=== PATIENT | male | born 1940 | race Caucasian/White ===

== ENCOUNTER 2017-04-24 02:58 | Emergency (ER) | payer MEDICARE ==
[~2017-04-24] VITALS: Ht 182.9 cm; Wt 83.9 kg
[~2017-04-24 02:58] MED LIST: BENZ1CAP34 PO; CARA1TAB6 PO; DEXT10SY2 PO; LISI10TA3 PO; PANT40TA3 PO; VENTAER INH
[2017-04-24 03:08] VITALS: BP 113/55; PULSE 80; RESP 18; TEMP 98.2; O2SAT 98
[2017-04-24 03:30] VITALS: O2SAT 99
[2017-04-24] MEDS ORDERED: ALUMINUM/MAGNESIUM/SIMETH 30 ML CUP PO ONE (03:30)
[2017-04-24] MEDS ORDERED: LIDOCAINE VISCOUS 2% SOLN 15 ML UDC PO ONE (03:30)
[2017-04-24] MEDS ORDERED: SODIUM CHLORIDE 0.9% FLUSH 10 ML FLUSH IV FLUSH PRN (03:30)
[2017-04-24 03:51] LABS: AUTOMATED NEUTROPHIL # 5.2 TH/MM3 (1.8-7.7); BASOPHIL % 0.4 % (0.0-2.0); EOSINOPHIL # 0.5 TH/MM3 (0-0.4); EOSINOPHIL % 6.1 % (0.0-4.0); HEMOGLOBIN 9.8 GM/DL (13.0-17.0); LYMPH % 17.9 % (9.0-44.0); LYMPHOCYTE # 1.4 TH/MM3 (1.0-4.8); MEAN CELL VOLUME 94.3 FL (80.0-100.0); MEAN CORPUSCULAR HGB CONC 33.9 % (32.0-36.0); MEAN PLATELET VOLUME 7.9 FL (7.0-11.0); MONOCYTE # 0.5 TH/MM3 (0-0.9); NEUT % 69.6 % (16.0-70.0); PLATELET COUNT 173 TH/MM3 (150-450); RED BLOOD COUNT 3.08 MIL/MM3 (4.50-5.90); RED CELL DISTRIBUTION WIDTH 13.5 % (11.6-17.2); WHITE BLOOD COUNT 7.6 TH/MM3 (4.0-11.0)
[2017-04-24 04:00] LABS: CHLORIDE 105 MEQ/L (98-107); SODIUM (NA) 141 MEQ/L (136-145)
[2017-04-24 04:05] LABS: CALCIUM 8.4 MG/DL (8.5-10.1); INTERNATIONAL NORMALIZED RATIO 0.9 RATIO; PROTHROMBIN TIME - PATIENT 10.4 SEC (9.8-11.6)
[2017-04-24 04:06] LABS: ALBUMIN 3.5 GM/DL (3.4-5.0); BICARBONATE 28.4 MEQ/L (21.0-32.0); BLOOD UREA NITROGEN 34 MG/DL (7-18); GLUCOSE,RANDOM 123 MG/DL (74-106); LIPASE 267 U/L (73-393)
[2017-04-24 04:08] LABS: ALT (GPT) 24 U/L (12-78); AST (GOT) 13 U/L (15-37); GLOMERULAR FILTRATION RATE 39 ML/MIN (>89)
[2017-04-24 04:10] LABS: TOTAL BILIRUBIN ADULT 0.3 MG/DL (0.2-1.0); TOTAL PROTEIN 6.9 GM/DL (6.4-8.2)
[2017-04-24 04:11] LABS: ALKALINE PHOSPHATASE 44 U/L (45-117)
--- NOTE | 2017-04-24 04:42 | PD ---
HPI Chief Complaint: Abdominal Pain Time Seen by Provider: 03:22 Travel History International Travel<30 days: Yes Contact w/Intl Traveler<30days: Yes Name of Country Traveled to: [facility] Traveled to known affect area: No History of Present Illness HPI 76-year-old male here for evaluation of abdominal pain that woke him up from sleep around 2:00 AM. The patient was recently admitted on 04/19/17 and was discharged the following day after having an upper endoscopy for epigastric pain and melena. EGD apparently demonstrated esophagitis and gastritis as well as duodenitis. There was a clean-based ulcer in the duodenum. Biopsies from this procedure were reviewed and shows normal duodenal mucosa, normal antrum, distal esophagitis. Patient reports that the pain was severe when it initially started, then he had a bowel movement in the pain improved. It is now mild to moderate, described as cramping. He denies vomiting. No fevers. No chest pain or dyspnea. He states his bowel movement was dark, however it was not black. PFSH Past Medical History Blood Disorders: No Cancer: No Cardiovascular Problems: Yes Diminished Hearing: No Endocrine: No Gastrointestinal Disorders: Yes (SEVERE BLEEDING GASTRIC ULCER) Genitourinary: Yes Hepatitis: Yes (C) Hypertension: Yes Immune Disorder: Yes (H(X) HEP B ) Implanted Vascular Access Dvce: No Kidney Stones: Yes Musculoskeletal: No Neurologic: No Reproductive: No Respiratory: No Ulcer: Yes Tetanus Vaccination: < 5 Years Influenza Vaccination: Yes Past Surgical History Abdominal Surgery: Yes (EGD WITH TOBI PLACED FOR BLEEDING ULCER ) Eye Surgery: Yes (cataract ) Oral Surgery: Yes (wisdom teeth ) Pacemaker: No Other Surgery: Yes (DEVIATED SEPTUM REPAIR; CATARACT SURGERY) Social History Alcohol Use: No Tobacco Use: No Substance Use: No Allergies-Medications (Allergen,Severity, Reaction): Coded Allergies: penicillin G (Unverified Allergy, Unknown, 04/24/17) Reported Meds & Prescriptions Reported Meds & Active Scripts Active Pantoprazole (Pantoprazole Sodium) 40 Mg Tab 40 Mg PO DAILY Carafate (Sucralfate) 1 Gram Tab 1 Gm PO ACHS Dextromethorphan/Guaifene 10-100 mg/5Ml (Dextromethorphan-Guaifenesin) 100 Mg- 10 Mg/5 Ml Syp 10 Ml PO Q4H PRN Reported Ventolin Hfa 18 GM Inh (Albuterol Sulfate) 90 Mcg/Act Aer 2 Puff INH Q4-6H PRN Benzonatate 200 Mg Cap 200 Mg PO TID PRN Lisinopril 10 Mg Tab 10 Mg PO DAILY Review of Systems Except as stated in HPI: all other systems reviewed are Neg Physical Exam Narrative GENERAL: Well-developed, well-nourished, comfortable, no apparent distress. SKIN: Focused skin assessment warm/dry. No pallor. HEAD: Atraumatic. Normocephalic. EYES: Pupils equal and round. No scleral icterus. No injection or drainage. ENT: Mucous membranes pink and moist. NECK: Trachea midline. No JVD. CARDIOVASCULAR: Regular rate and rhythm. RESPIRATORY: No accessory muscle use. Clear to auscultation. Breath sounds equal bilaterally. GASTROINTESTINAL: Abdomen soft, nondistended. Mild epigastric and umbilical tenderness without peritoneal signs. Normal bowel sounds. MUSCULOSKELETAL: No obvious deformities. No clubbing. No cyanosis. No edema. NEUROLOGICAL: Awake and alert. No obvious cranial nerve deficits. Motor grossly within normal limits. Normal speech. PSYCHIATRIC: Appropriate mood and affect; insight and judgment normal. Data Data Last Documented VS Vital Signs Date Time Temp Pulse Resp B/P (MAP) Pulse Ox O2 Delivery O2 Flow Rate FiO2 04/24/17 04:57 78 18 130/65 (86) 98 Room Air 04/24/17 03:08 98.2 Orders Orders Complete Blood Count With Diff (04/24/17 03:26) Comprehensive Metabolic Panel (04/24/17 03:26) Lipase (04/24/17 03:26) Prothrombin Time / Inr (Pt) (04/24/17 03:26) Act Partial Throm Time (Ptt) (04/24/17 03:26) Urinalysis - C+S If Indicated (04/24/17 03:26) Ct Abd/Pel W Iv Contrast(Rout) (04/24/17 03:26) Iv Access Insert/Monitor (04/24/17 03:26) Ecg Monitoring (04/24/17 03:26) Oximetry (04/24/17 03:26) Sodium Chloride 0.9% Flush (Ns Flush) (04/24/17 03:30) Electrocardiogram (04/24/17 03:26) Al-Mag Hy-Si 40-40-4 Mg/Ml Liq (Mag-Al P (04/24/17 03:30) Lidocaine 2% Viscous (Xylocaine 2% Visco (04/24/17 03:30) Iodixanol 320 Inj (Rad Ct) (Visipaque 32 (04/24/17 04:45) Labs Laboratory Tests Test 04/24/17 03:35 White Blood Count 7.6 TH/MM3 Red Blood Count 3.08 MIL/MM3 Hemoglobin 9.8 GM/DL Hematocrit 29.0 % Mean Corpuscular Volume 94.3 FL Mean Corpuscular Hemoglobin 32.0 PG Mean Corpuscular Hemoglobin Concent 33.9 % Red Cell Distribution Width 13.5 % Platelet Count 173 TH/MM3 Mean Platelet Volume 7.9 FL Neutrophils (%) (Auto) 69.6 % Lymphocytes (%) (Auto) 17.9 % Monocytes (%) (Auto) 6.0 % Eosinophils (%) (Auto) 6.1 % Basophils (%) (Auto) 0.4 % Neutrophils # (Auto) 5.2 TH/MM3 Lymphocytes # (Auto) 1.4 TH/MM3 Monocytes # (Auto) 0.5 TH/MM3 Eosinophils # (Auto) 0.5 TH/MM3 Basophils # (Auto) 0.0 TH/MM3 CBC Comment DIFF FINAL Differential Comment Prothrombin Time 10.4 SEC Prothromb Time International Ratio 0.9 RATIO Activated Partial Thromboplast Time 25.3 SEC Blood Urea Nitrogen 34 MG/DL Creatinine 1.70 MG/DL Random Glucose 123 MG/DL Total Protein 6.9 GM/DL Albumin 3.5 GM/DL Calcium Level 8.4 MG/DL Alkaline Phosphatase 44 U/L Aspartate Amino Transf (AST/SGOT) 13 U/L Alanine Aminotransferase (ALT/SGPT) 24 U/L Total Bilirubin 0.3 MG/DL Sodium Level 141 MEQ/L Potassium Level 3.9 MEQ/L Chloride Level 105 MEQ/L Carbon Dioxide Level 28.4 MEQ/L Anion Gap 8 MEQ/L Estimat Glomerular Filtration Rate 39 ML/MIN Lipase 267 U/L [facility] Medical Decision Making Medical Screen Exam Complete: Yes Emergency Medical Condition: Yes Medical Record Reviewed: Yes Interpretation(s) EKG: Sinus, rate 77, normal axis, normal intervals, no acute ischemic abnormality. Differential Diagnosis Gastritis, peptic ulcer disease, pancreatitis, perforated bowel, ACS Narrative Course Initial vital signs show heart rate 80, blood pressure 113/55, pulse ox 98% on room air, oral temp of 98.2F. CBC: WBC 7.6, hemoglobin 9.8, hematocrit 29, platelets 173. Patient's hemoglobin is improved from 4 days ago when he was discharged when it was 9.0. CMP is remarkable for BUN 34, creatinine 1.7, GFR 39. Lipase is 267. CT abdomen pelvis: Cholelithiasis. Nonobstructing left renal calculus. Multiple left renal cysts. Patient was given a GI cocktail, and on reassessment he is resting comfortably and is pain-free. Both the patient and the patient's were made aware of all findings and provided a copy of the CT abdomen pelvis report. His gastritis /esophagitis is likely the culprit for his discomfort. At this point he is stable for discharge home with outpatient follow-up. He has an appointment with his residential sales manager on Saturday of next week. I told him to keep this appointment. He was informed on when to return to the emergency department. He verbalizes understanding and agreement with plan. Diagnosis Primary Impression: Epigastric abdominal pain Referrals: [employer] 1 week Additional Instructions: Follow-up with your residential sales manager next week as scheduled. Follow-up with your primary care physician this week. Return to the emergency department for worsening symptoms or any other concerns. Disposition: 01 DISCHARGE HOME Condition: Stable Nikolay Roe MD Apr 24, 2017 04:42
[2017-04-24] MEDS ORDERED: IODIXANOL 320 MG/ML 10 ML VIAL (for Rad CT) IVCONTRAST ONE (04:45)
[2017-04-24 04:57] VITALS: BP 130/65; PULSE 78; RESP 18; O2SAT 98
--- NOTE | 2017-04-24 05:05 | RADRPT ---
EXAM DATE/TIME: 04/24/2017 04:28 [place] COMPARISON: No previous studies available for comparison. INDICATIONS : Abdominal pain. IV CONTRAST: 50 cc Visipaque (iodixanol) IV ORAL CONTRAST: No oral contrast ingested. RADIATION DOSE: 11.13 CTDIvol (mGy) MEDICAL HISTORY : Hypertension. Hepatitis C. Ulcers. SURGICAL HISTORY : Gastric ulcer surgery. ENCOUNTER: Initial ACUITY: 1 day PAIN SCALE: 7/10 LOCATION: Bilateral abdomen TECHNIQUE: Volumetric scanning of the abdomen and pelvis was performed. Using automated exposure control and ad justment of the mA and/or kV according to patient size, radiation dose was kept as low as reasonably achievable to obtain optimal diagnostic quality images. DICOM format image data is available electro nically for review and comparison. FINDINGS: LOWER LUNGS: The visualized lower lungs are clear. LIVER: Homogeneous density without lesion. There is no dilation of the biliary tree. Several calcified gall stones. SPLEEN: Normal size without lesion. PANCREAS: Within normal limits. KIDNEYS: Normal in size and shape. There is no mass, stone or hydronephrosis on the right. 4-5 mm nonobstruct ing calculus lower pole left kidney. Multiple left-sided renal cysts.. ADRENAL GLANDS: Within normal limits. VASCULAR: There is no aortic aneurysm. BOWEL/MESENTERY: The stomach, small bowel, and colon demonstrate no acute abnormality. There is no free intraperitone al air or fluid. ABDOMINAL WALL: Within normal limits. RETROPERITONEUM: There is no lymphadenopathy. BLADDER: No wall thickening or mass. REPRODUCTIVE: Within normal limits. INGUINAL: There is no lymphadenopathy or hernia. MUSCULOSKELETAL: Within normal limits for patient age. CONCLUSION: 1. Cholelithiasis. 2. Nonobstructing left renal calculus. Victor Manuel Ni MD on April 24, 2017 at 5:01 Board Certified Radiologist. This report was verified electronically.
[2017-04-24 05:33] VITALS: BP 123/61
--- NOTE | 2017-04-24 21:19 | EKG ---
Date Performed: 04/24/2017 Time Performed: 03:33:21 PTAGE: 76 years EKG: Sinus rhythm NORMAL ECG PREVIOUS TRACING : 01/09/2014 22.02 Compared to the previous tracing RBBB no longer present DOCTOR: Lisa Kelsey Interpretating Date/Time 04/24/2017 21:18:06
== END 2017-04-24 05:35 | disposition home or self-care (01) ==
LOC: PHED 02:58
DX: R10.13 Epigastric pain (principal); K20.9 Esophagitis, unspecified; K29.70 Gastritis, unspecified, without bleeding; K29.80 Duodenitis without bleeding; I10 Essential (primary) hypertension; N20.0 Calculus of kidney
CPT/HCPCS: 74177; 80053; 83690; 85025; 85610; 85730; 93005; 99285; Q9967